=== PATIENT | female | born 1960 | race Caucasian/White ===

== ENCOUNTER 2018-04-10 06:02 | Observation (INO) ==
[2018-04-10] MEDS ORDERED: Chlorhexidine Gluconate 2% 1 Pack (2 Cloths) TOPICAL ONE (06:42)
[2018-04-10] MEDS ORDERED: Metoprolol Tartrate 25 MG Tablet PO ONE (06:42)
[2018-04-10] MEDS ORDERED: Sodium Chloride 0.9% 2 ML Flush PRN IV.FLUSH (06:44)
[2018-04-10] MEDS ORDERED: Sodium Chlor 0.9% Inj 500 ML IV.SIG SCH (07:00)
[2018-04-10] MEDS ORDERED: Vancomycin Inj 1,000 MG in Sodium Chlor 0.9% Inj 250 ML IV.SIG SCH (07:00)
[2018-04-10] MEDS ORDERED: Propofol Inj 500 MG/50 ML Vial ONE (07:23)
[2018-04-10] MEDS ORDERED: Artificial Tears Opth Oint 3.5 GM Tube ONE ×2 (07:23→07:57)
[2018-04-10] MEDS ORDERED: fentaNYL Citrate Inj 250 MCG/5 ML Ampul ONE (07:23)
[2018-04-10] MEDS ORDERED: Dexmedetomidine Inj 200 MCG/2 ML Vial ONE (07:24)
[2018-04-10] MEDS ORDERED: Insulin NovoLIN Regular Correctional Sugar Inj SQ SCH (07:50)
[2018-04-10] MEDS ORDERED: Thrombin Topical Soln 5,000 UNIT Vial TOPICAL ONE (07:57)
[2018-04-10] MEDS ORDERED: ceFAZolin 1 GM Premix Inj 2 GM/100 ML FROZ.PIGGY IV.SIG ONE (07:57)
[2018-04-10] MEDS ORDERED: Gelatin Size 100 Topical Foam ONE ×2 (07:58→08:07)
[2018-04-10] MEDS ORDERED: Morphine Inj 4 MG/ML Vial ONE (11:38)
[2018-04-10] MEDS ORDERED: *morphine SULFATE 4 MG/ML PERIprocedure ONLY ONE ×2 (12:09→12:15)
[2018-04-10] MEDS ORDERED: Bisacodyl 10 MG Supp RECTAL PRN (12:41)
[2018-04-10] MEDS: Gabapentin 300 MG Capsule PO SCH ×2 (14:31→17:45)
[2018-04-10] MEDS: Sod Chloride 0.9% Inj 1,000 ML IV.SIG SCH (14:33)
--- NOTE | 2018-04-10 14:33 | P.OP ---
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 Anesthesia: GETA Surgeon: Octavio Patterson MD Business Rules Analyst: Belkis Saha
[2018-04-10] MEDS: Morphine Sulfate Inj 2 MG/ML Vial IV.PUSH PRN (15:45)
[2018-04-10] MEDS: ceFAZolin 2 GM Premix Inj 2 GM/50 ML PIGGYBACK IV.SIG SCH (17:45)
--- NOTE | 2018-04-10 18:57 | XR ---
EXAM DATE: 04/10/2018 6:54 PM EST AGE/SEX: 57 years / Female INDICATIONS: Fusion C3,C4 with screws and plate placement. CLINICAL DATA: This is the patient's initial encounter. Patient reports that signs and symptoms have been present for 1 day and indicates a pain score of Nonresponsive. MEDICAL/SURGICAL HISTORY: None. None. COMPARISON: No prior exams available for comparison. FINDINGS: AP and crosstable lateral intraoperative views demonstrate intradiscal with plate and anterior screw fixation at C3-4. Hardware appears grossly well-positioned. Sagittal alignment is maintained. Vertebr al body heights are intact. On the AP view, there is a lower cervical fixation hardware demonstrated. CONCLUSION: 1. C3-4 anterior fusion, as above. Electronically signed by: Ranjan Ghotra MD 04/10/2018 6:56 PM EST
[2018-04-10] MEDS: Senna/Docusate Sodium 8.6/50 MG Tablet PO SCH (21:27)
[2018-04-10] MEDS: Topiramate 25 MG Tablet PO SCH (21:27)
[2018-04-10] MEDS: LORazepam 1 MG Tablet PO SCH (21:28)
[2018-04-10] MEDS: Sodium Chloride 0.9% 2 ML Flush BID IV.FLUSH SCH (21:29)
[2018-04-11] MEDS: ceFAZolin 2 GM Premix Inj 2 GM/50 ML PIGGYBACK IV.SIG SCH ×2 (00:13→08:38)
[2018-04-11] MEDS: Morphine Sulfate Inj 2 MG/ML Vial IV.PUSH PRN ×4 (02:45→18:10)
[2018-04-11] MEDS ORDERED: Levothyroxine 75 MCG Tablet PO SCH (06:00)
[2018-04-11] MEDS: Sod Chloride 0.9% Inj 1,000 ML IV.SIG SCH (06:06)
[2018-04-11] MEDS: Topiramate 25 MG Tablet PO SCH (08:37)
[2018-04-11] MEDS: LORazepam 1 MG Tablet PO SCH (08:37)
[2018-04-11] MEDS: Senna/Docusate Sodium 8.6/50 MG Tablet PO SCH (08:38)
[2018-04-11] MEDS: Gabapentin 300 MG Capsule PO SCH ×3 (08:38→17:08)
[2018-04-11] MEDS: Sodium Chloride 0.9% 2 ML Flush BID IV.FLUSH SCH (08:45)
[2018-04-11] MEDS ORDERED: dilTIAZem CD 300 MG Capsule PO SCH (09:00)
[2018-04-11] MEDS ORDERED: Dextrose 50% in Water 50 ML Vial IV.PUSH PRN (13:35)
[2018-04-11] MEDS: Insulin NovoLOG Aspart Correctional Sugar Inj SQ SCH ×2 (14:17→17:12)
--- NOTE | 2018-04-11 15:11 | P.DS ---
Date of admission: 04/10/18 12:41 Primary care physician: Cheryl Duran MD Brief History from admission: Patient presents for cervical decompression and arthrodesis DS: Summary Hospital Course: Ms. Anguiano underwent a C3-4 cervical discectomy, interbody arthodhesis using PEEK cage filled with autologous bone graft, Simplicity plate and screws for C3- 4 cervical disk herniation on 04/10/18. She was discharged home in stable conditions. - Time Spent with Patient Total time spent providing and/or coordinating discharge services: Less than 30 minutes - Quality: VTE Deep Vein Thrombosis/Pulmonary Embolism Present on Admission: No Exam Vital signs: Vital Signs 04/10/18 16:00 04/10/18 16:42 04/10/18 18:48 Temperature 97.8 F Pulse Rate 65 Respiratory Rate 20 18 18 Blood Pressure 155/64 H Pulse Oximetry 96 04/10/18 19:30 04/10/18 20:00 04/11/18 00:00 Temperature 97.8 F 98.1 F Pulse Rate 62 59 L Respiratory Rate 18 19 20 Blood Pressure 179/82 H 187/77 H Pulse Oximetry 98 96 04/11/18 02:45 04/11/18 04:00 04/11/18 07:33 Temperature 97.3 F L Pulse Rate 51 L Respiratory Rate 18 18 Blood Pressure 169/68 H 178/73 H Pulse Oximetry 94 L 04/11/18 08:00 04/11/18 09:15 04/11/18 11:11 Temperature 97.5 F L Pulse Rate 44 L Respiratory Rate 20 18 18 Blood Pressure 161/121 H Pulse Oximetry 97 04/11/18 12:00 04/11/18 13:50 Temperature 97.8 F Pulse Rate 59 L Respiratory Rate 20 20 Blood Pressure 139/65 Pulse Oximetry 96 Intake & Output 04/10/18 04/11/18 04/11/18 18:59 06:59 18:59 Intake Total 1800 / 1800 100 / 100 Balance 1800 / 1800 100 / 100 Weight 72.5 kg Intake: IV 100 / 100 Ancef 2 GM Premix Inj 2 gm In 100 / 100 50 ml @ 100 mls/hr IV.SIG Q8H SARAH Rx#:[id number] Anesthesia Amount 1800 / 1800 Other: Date of Last Bowel Movement 04/09/18 04/09/18 04/09/18 Results Procedures completed during hospitalization: c3-4 cervical discectomy, interbody arthodhesis using PEEK cage filled with autologous bone graft, Simplicity plate and screws. Labs on day of discharge: Labs from last 24 hours 04/11/18 04/10/18 04/10/18 13:17 21:37 17:22 POC Glucose 486 H* 333 H 312 H - Impressions ITS Impressions Cervical Spine X-Ray 04/10/18 00:00 CONCLUSION: 1. C3-4 anterior fusion, as above. Discharge Plan - Discharge Disposition Patient Disposition: Discharge Home - Discharge Condition Condition: Stable - Discharge Order Discharge Orders: Discharge Order (Routine); Ordered 04/11/18 Ordered By: Jillian Hurst - Physicians Team Primary Care Provider: Cheryl Duran Attending Provider: Octavio Patterson Other Providers: Rafael Wiggins MD, PhD - Rxs /Orders / Referrals /Forms Prescriptions: Continue clonidine-chlorthalidone 0.1-15 mg Tablet 1 tab PO DAILY diltiazem HCl 300 mg Capsule,Extended Release 24 Hr 300 mg PO DAILY gabapentin 300 mg Capsule 300 mg PO TID levothyroxine 75 mcg Tablet 75 mcg PO DAILY lorazepam 1 mg Tablet 1 mg PO BID metformin 500 mg Tablet 500 mg PO DAILY metoprolol succinate 100 mg Tablet Extended Release 24 Hr 100 mg PO BID morphine 30 mg Tablet 30 mg PO TID pantoprazole 40 mg Tablet,Delayed Release (Dr/Ec) 40 mg PO DAILY paroxetine HCl 20 mg Tablet 20 mg PO DAILY topiramate [Topamax] 25 mg Tablet 25 mg PO BID zolpidem [Ambien] 10 mg Tablet 1 tab PO DAILY Ambulatory Orders / Order Sets / DME: Adjustable Commode 3-in-1 (1 each) (Routine) Location: Determined by Patient Ordered By: Jillian Hurst Referrals: Cheryl Duran MD [Primary Care Provider] - See Instructions - Discharge Instructions Additional Instructions: [facility] to deliver 3:1 commode to patient's home tomorrow ([facility]Phone [phone]) and will call patients via cell phone on delivery time.
== END 2018-04-11 20:08 | disposition home or self-care (01) ==
LOC: HSDI 06:02 → HSDC 06:02 → N05 13:51
PROVIDERS: ADMIT Neurological Surgery; ATTEND Neurological Surgery